=== PATIENT | female | born 1955 | race Caucasian/White ===

== ENCOUNTER 2025-10-09 15:41 | Outpatient (CLI) | payer MEDICARE, SELFPAY ==
--- NOTE | ~2025-10-09 | XR_ITS ---
EXAMINATION: XR chest 2V DATE: 10/09/2025 16:13 INDICATION: Tuberculosis TECHNIQUE: Frontal and lateral views of the chest were obtained. COMPARISON: None. FINDINGS: The lungs are clear. No bulky lymphadenopathy. Heart size normal. Bones and upper abdomen unremarkable. IMPRESSION: No focal acute process or gross evidence of active tuberculosis. Reviewed, dictated and finalized at location A. [facility]
== END 2025-10-09 15:42 | disposition home or self-care (01) ==
PROVIDERS: PCP Family Medicine; Visit Provider Physician Assistant
DX: Z11.1 Encounter for screening for respiratory tuberculosis (principal); Z79.620 Long term (current) use of immunosuppressive biologic
CPT/HCPCS: 71046; 86480